=== PATIENT | male | born 1955 | race Caucasian/White ===

== ENCOUNTER 2018-10-09 16:56 | Inpatient (IN) | payer OTHER ==
[~2018-10-09] VITALS: Ht 182.9 cm; Wt 67.6 kg
[~2018-10-09 16:56] MED LIST: ACETAMINOPHEN325 M1 PO; AMOX TR-K CLV1 EAC4 PO; ASPIRIN EC325 M1 PO; ASPIRIN EC81 M1 PO; B-12250 MCG PO; CRESTOR10 MG PO; CYCLOBENZAPRINE PO; EFFIENT10 MG PO; IBUPROFEN 200200 M1 PO; LIPITOR PO; LIPITOR10 MG PO; LIPITOR40 MG PO; NICOTINE TRANSD21 M1 TD; NITROSTAT0.4 MG SL; PROSTATE 2.4 C1 EACH; TAMSULOSIN HCL0.4 M1 PO; TOPROL XL25 MG PO
[2018-10-09 16:57] VITALS: BP 143/87
[2018-10-09 17:36] LABS: BASOPHILS 0.5 % (0.0-2.0); EOSINOPHILS 0.5 % (0.0-3.0); HEMATOCRIT 51.5 % (42.0-52.0); HEMOGLOBIN 17.9 gm/dL (14.0-18.0); LYMPHOCYTES 9.2 % (24.0-44.0); MCH 31.4 pg (26.0-34.0); MCHC 34.7 g/dL (28.0-37.0); MCV 90.3 fL (80.0-100.0); MONOCYTES 5.7 % (1.0-8.0); PLATELET COUNT 409 thou/uL (150-400); POLYS 84.1 % (36.0-66.0); RBC 5.71 mil/uL (4.50-6.00); RDW 16.3 % (10.5-14.5); WBC 16.7 thou/uL (4.0-11.0)
[2018-10-09 17:43] LABS: ANION GAP 10 mmol/L (7-16); BUN 14 mg/dL (7-18); CALCIUM 9.6 mg/dL (8.5-10.1); CHLORIDE 95 mmol/L (98-107); CO2 26 mmol/L (21-32); CREATININE 0.9 mg/dL (0.7-1.3); GLUCOSE 102 mg/dL (74-106); POTASSIUM 4.1 mmol/L (3.5-5.1); SODIUM 131 mmol/L (136-145)
[2018-10-09 17:52] LABS: TROPONIN-I <0.06 ng/mL (<0.06)
[2018-10-09 20:06] LABS: CHOLESTEROL 246 mg/dL (<200); HDL CHOLESTEROL 72 mg/dL (>40); LDL CHOLESTEROL 157 mg/dL (<100); TC:HDL 3.4 Ratio (Not establshd); TRIGLYCERIDE 86 mg/dL (<150); VLDL 17 mg/dL (<40)
[2018-10-09 20:10] VITALS: BP 159/98
[2018-10-09 20:16] VITALS: BP 118/71
[2018-10-09 20:40] VITALS: BP 144/92
--- NOTE | 2018-10-09 20:47 | NUR ---
PATIENT TRANSFERRED TO FLOOR WITH MONITOR AND RN. NO NEW COMPLAINTS
[2018-10-09] MEDS ORDERED: PLAVIX 75 MG TA75 M1 PO (21:34)
[2018-10-09] MEDS ORDERED: HYDREA500 MG PO (21:36)
--- NOTE | 2018-10-09 22:57 | NUR ---
PATIENT WAS A NEW ADMISSION TO THE UNIT THIS SHIFT. HE ARRIVED VIA WHEELCHAIR FROM ER AND WAS ABLE TO AMBULATE AROUND ROOM WITHOUT INCIDENT. PATIENT IS ALERT AND ORIENTED AND ABLE TO PARTICIPATE IN ADMISSION AND CALL APPROPRIATELY FOR NEEDS. LEFT ARM PAIN/NUMBNESS IS PRIMARY CONCERN AND CHIEF COMPLAINT. DURING ADMISSION PROCESS NURSE NOTED PATIENT HAVING BILLFOLD IN ROOM WITH ELIAS AND BANKCARD. PATIENT DECLINED IT BEING SENT TO SECURITY OFFICE PER PROTOCOL. NURSE TO COMPLETE ADMISSION PROCESS AND INITIATE CARE PLAN.
[2018-10-09 23:34] VITALS: BP 113/69
[2018-10-10 03:15] VITALS: BP 131/82
[2018-10-10 05:33] LABS: HEMATOCRIT 48.4 % (42.0-52.0); HEMOGLOBIN 16.7 gm/dL (14.0-18.0); MCH 31.4 pg (26.0-34.0); MCHC 34.6 g/dL (28.0-37.0); MCV 90.8 fL (80.0-100.0); RBC 5.33 mil/uL (4.50-6.00); RDW 16.6 % (10.5-14.5); WBC 10.4 thou/uL (4.0-11.0)
[2018-10-10 05:45] LABS: ANION GAP 9 mmol/L (7-16); BUN 16 mg/dL (7-18); CALCIUM 9.1 mg/dL (8.5-10.1); CHLORIDE 100 mmol/L (98-107); CO2 26 mmol/L (21-32); CREATININE 0.9 mg/dL (0.7-1.3); GLUCOSE 89 mg/dL (74-106); MAGNESIUM 2.1 mg/dL (1.8-2.4); POTASSIUM 4.3 mmol/L (3.5-5.1); SODIUM 135 mmol/L (136-145); TROPONIN-I <0.06 ng/mL (<0.06)
[2018-10-10 08:09] VITALS: BP 146/96
--- NOTE | 2018-10-10 08:22 | EKG ---
[address] [address] ELECTROCARDIOGRAM REPORT Name: RAMONA DOMINGUEZ Room #: 356-P ADM IN M.R.#: [id number] Admission: 10/09/18 Attend Phys: Nivia Weems MD Discharge: Date of : 51 Report #: [id number] THIS REPORT FOR: //name// [facility] ED Test Date: 2018-10-09 Test Time: 17:08:24 Pat Name: RAMONA DOMINGUEZ Department: Room: [facility] Gender: M Pc Support Specialist: KF : [id number] Requested By: Jay Thomson Order Number: [id number] MD: John Drake Measurements Intervals [place] Rate: 102 P: 86 DE: 139 QRS: -42 QRSD: 84 T: 94 QT: 346 QTc: 451 Interpretive Statements Sinus tachycardia Left axis deviation RSR' in V1 or V2, probably normal variant Borderline repolarization abnormality Compared to ECG 07/02/2015 13:07:12 Left-axis deviation now present RSR' in V1 or V2 now present Electronically Signed On 10-10-2018 8:22:37 [employer]OUNTS MANAGER by John Drake [email or web address] <ELECTRONICALLY SIGNED> By: John Drake MD, [facility] 10/10/18 0822 1708 1708 John Drake MD, [facility] /EPI
[2018-10-10 09:12] VITALS: BP 146/96
--- NOTE | 2018-10-10 10:15 | NUR ---
ASSUMED PATIENT CARE AT 0700. DENIES CHEST PAIN. NO N/V. DR SERNA CAME SEE PATIENT THAT ORDERED HEART CATH BUT PATIENT REFUSED AND WANTS GO HOME DU[place] TO WEATH[place] AND NOT FEELS THAT BED NEED HEART. PATIENT COULD NOT WAIT DR JARRELL COME UP TO TALK AND DISCHARGE. SIGN AMA AT 0948.
[2018-10-11 01:07] LABS: GLYCOHEMOGLOBIN (HGB A1C) 5.3 % (4.8-5.6)
== END 2018-10-10 09:55 | disposition left against medical advice (07) | DRG 303 ==
LOC: ER 16:56 → EROBS 18:30 → 3W 19:09
PROVIDERS: Emergency Medicine; ADMIT Internal Medicine
DX: I25.110 Atherosclerotic heart disease of native coronary artery with unstable angina pectoris (principal); E78.5 Hyperlipidemia, unspecified; I10 Essential (primary) hypertension; G89.29 Other chronic pain; M54.9 Dorsalgia, unspecified; F17.210 Nicotine dependence, cigarettes, uncomplicated; Z91.14 Patient's other noncompliance with medication regimen; Z71.6 Tobacco abuse counseling; I25.2 Old myocardial infarction; Z95.5 Presence of coronary angioplasty implant and graft; Z86.73 Personal history of transient ischemic attack (TIA), and cerebral infarction without residual deficits; Z87.828 Personal history of other (healed) physical injury and trauma; Z79.899 Other long term (current) drug therapy; Z88.5 Allergy status to narcotic agent
CPT/HCPCS: 10879